=== PATIENT | female | born 1995 ===

== ENCOUNTER 2020-09-21 11:39 | Outpatient (CLI) | payer OTHER | END 2020-09-21 11:50 | disposition home or self-care (01) | LOC: RAD 11:39 | PROVIDERS: ATTEND General Practice | DX: R05 Cough (principal) ==

== ENCOUNTER 2021-03-21 17:38 | Emergency (ER) | payer OTHER ==
[~2021-03-21] VITALS: Ht 162.6 cm; Wt 613.7 kg
[2021-03-21] MEDS ORDERED: TRI-LO-SPRINTE1 EACH PO (17:56)
[2021-03-22] MEDS ORDERED: PEPCID AC20 MG PO (00:47)
[2021-03-22] MEDS ORDERED: OMEPRAZOLE20 M1 PO (00:47)
== END 2021-03-22 00:50 | disposition home or self-care (01) ==
LOC: ER 17:38
DX: K30 Functional dyspepsia (principal); Z20.822 Contact with and (suspected) exposure to COVID-19

== ENCOUNTER 2021-05-18 08:00 | Outpatient (CLI) | payer OTHER ==
[~2021-05-18 08:00] MED LIST: OMEPRAZOLE20 M1 PO; PEPCID AC20 MG PO; TRI-LO-SPRINTE1 EACH PO
== END 2021-05-18 08:30 | disposition home or self-care (01) ==
LOC: PPH VACUNA 08:00
PROVIDERS: ATTEND Emergency Medicine Pediatric Emergency Medicine
DX: Z23 Encounter for immunization (principal)

== ENCOUNTER → 2025-03-19 15:17 | Outpatient (CLI) | payer OTHER | END | disposition home or self-care (01) | LOC: PRENATAL 15:17 | PROVIDERS: ATTEND Obstetrics & Gynecology Maternal & Fetal Medicine | DX: O44.00 Complete placenta previa NOS or without hemorrhage, unspecified trimester (principal); Z3A.21 21 weeks gestation of pregnancy ==

== ENCOUNTER 2025-06-10 10:05 | Outpatient (CLI) | payer OTHER | END 2025-06-10 10:06 | disposition home or self-care (01) | LOC: PRENATAL 10:05 | PROVIDERS: ATTEND Obstetrics & Gynecology Maternal & Fetal Medicine | DX: O26.849 Uterine size-date discrepancy, unspecified trimester (principal); O36.8199 Decreased fetal movements, unspecified trimester, other fetus; O99.019 Anemia complicating pregnancy, unspecified trimester; Z3A.34 34 weeks gestation of pregnancy ==